=== PATIENT | male | born 1955 | race Caucasian/White ===

== ENCOUNTER 2020-01-03 18:56 | Emergency (ER) | payer MEDICAID ==
[~2020-01-03] VITALS: Ht 172.7 cm; Wt 76.2 kg
[2020-01-03 19:12] VITALS: BP 134/88
[2020-01-03] MEDS ORDERED: KETOROLAC 30 MG/ML VIAL IVP ONE (19:55)
[2020-01-03] MEDS ORDERED: NACL 0.9% 1,000 ML IV ONE (19:55)
[2020-01-03] MEDS ORDERED: PANTOPRAZOLE 40 MG INJ VIAL IVP ONE (19:55)
[2020-01-03 20:41] LABS: APPEARANCE,URINE CLEAR (CLEAR); BILIRUBIN,URINE 1+ (NEGATIVE); BLOOD, URINE NEGATIVE (NEGATIVE); COLOR,URINE YELLOW (YELLOW); LEUKOCYTE ESTERASE ,URINE NEGATIVE (NEGATIVE); NITRITE, URINE NEGATIVE (NEGATIVE); UGLUCOSE NEGATIVE (NEGATIVE)
[2020-01-03 21:07] LABS: MEAN CORPUSCULAR HGB CONC 34 g/dL (33-37)
[2020-01-03 21:21] LABS: ALBUMIN 3.2 g/dL (3.4-5.0); ANION GAP 13.4 (8-16); CARBON DIOXIDE 25.9 mmol/L (21-32); CREATININE 0.7 mg/dL (0.6-1.3); POTASSIUM 4.3 mmol/L (3.5-5.1); TOTAL BILIRUBIN 1.2 mg/dL (0.0-1.0)
[2020-01-03 21:24] LABS: BASOPHILS # (AUTO) 0.1 K/uL (0.00-0.22); BASOPHILS % (AUTO) 0.8 % (0.0-2.0); EOSINOPHILS # (AUTO) 0.1 K/uL (0-0.4); EOSINOPHILS % (AUTO) 0.6 % (0.0-4.0); HEMATOCRIT 40.2 % (36-52); HEMOGLOBIN 13.5 g/dL (12.0-18.0); LYMPHOCYTES # (AUTO) 2.2 K/uL (2.0-11.5); LYMPHOCYTES % (AUTO) 22.8 % (20.5-51.1); MEAN CORPUSCULAR HEMOGLOBIN 30 pg (27-31); MEAN CORPUSCULAR VOLUME 89.2 fL (80-94); MONOCYTES # (AUTO) 0.7 K/uL (0.8-1.0); MONOCYTES % (AUTO) 7.3 % (1.7-9.3); NEUTROPHILS # (AUTO) 6.5 K/uL (1.8-7.7); NEUTROPHILS % (AUTO) 68.5 % (42.2-75.2); PLATELET COUNT (AUTO) 225 K/uL (140-450); RED CELL DISTRIBUTION WIDTH 14.1 % (11.6-13.7); WHITE BLOOD COUNT (AUTO) 9.5 K/uL (4.8-10.8)
[2020-01-03 22:16] VITALS: BP 134/88
== END 2020-01-03 22:17 | disposition home or self-care (01) ==
LOC: MED 18:56
DX: K29.70 Gastritis, unspecified, without bleeding (principal); Z87.11 Personal history of peptic ulcer disease
CPT/HCPCS: 36415; 76705; 80053; 81003; 83690; 85025; 96361; 96374; 96375; 99284; C9113; J1885; J7030

== ENCOUNTER 2020-01-04 15:25 | Inpatient (IN) | payer MEDICAID, SELFPAY ==
[~2020-01-04] VITALS: Ht 182.9 cm; Wt 73.5 kg
--- NOTE | 2020-01-04 16:03 | NUR ---
PT TAKEN TO BED 6.
[2020-01-04 16:05] VITALS: BP 110/76
--- NOTE | 2020-01-04 16:05 | NUR ---
PATIENT PRESENTS TO ED WITH C/O RECTAL BLEED . PT STATES SX X 2 DAYS . SKIN IS PINK/WARM/DRY; AAOX4 WITH EVEN AND STEADY GAIT; LUNGS CLEAR BL; HR EVEN AND REGULAR; PT DENIES ANY FEVER, CP, SOB, OR COUGH AT THIS TIME; PATIENT STATES PAIN OF 0/10 AT THIS TIME; VSS; PATIENT POSITIONED FOR COMFORT; HOB ELEVATED; BEDRAILS UP X2; BED DOWN. ER MD MADE AWARE OF PT STATUS.
--- NOTE | 2020-01-04 16:05 | NUR ---
[facility] WITH C/O RECTAL BLEED X 2 DAYS. PT IS ALBANIAN SPEAKING INTERPRETOR AT BEDSIDE
--- NOTE | 2020-01-04 16:20 | NUR ---
RECTAL EXAM DONE, (+) FOR OB
[2020-01-04 16:32] LABS: BASOPHILS # (AUTO) 0.1 K/uL (0.00-0.22); BASOPHILS % (AUTO) 0.6 % (0.0-2.0); EOSINOPHILS # (AUTO) 0.1 K/uL (0-0.4); EOSINOPHILS % (AUTO) 0.8 % (0.0-4.0); HEMATOCRIT 30.5 % (36-52); HEMOGLOBIN 10.4 g/dL (12.0-18.0); LYMPHOCYTES # (AUTO) 2.8 K/uL (2.0-11.5); LYMPHOCYTES % (AUTO) 27.3 % (20.5-51.1); MEAN CORPUSCULAR HEMOGLOBIN 31 pg (27-31); MEAN CORPUSCULAR HGB CONC 34 g/dL (33-37); MEAN CORPUSCULAR VOLUME 89.8 fL (80-94); MONOCYTES # (AUTO) 0.7 K/uL (0.8-1.0); MONOCYTES % (AUTO) 7.2 % (1.7-9.3); NEUTROPHILS # (AUTO) 6.6 K/uL (1.8-7.7); NEUTROPHILS % (AUTO) 64.1 % (42.2-75.2); PLATELET COUNT (AUTO) 210 K/uL (140-450); RED CELL DISTRIBUTION WIDTH 14.3 % (11.6-13.7); WHITE BLOOD COUNT (AUTO) 10.3 K/uL (4.8-10.8)
[2020-01-04 17:10] LABS: ALBUMIN 3.3 g/dL (3.4-5.0); ANION GAP 13.7 (8-16); CARBON DIOXIDE 26.1 mmol/L (21-32); POTASSIUM 3.8 mmol/L (3.5-5.1); PROTHROMBIN TIME 9.9 secs (10.8-13.4); TOTAL BILIRUBIN 0.6 mg/dL (0.0-1.0)
--- NOTE | 2020-01-04 18:31 | NUR ---
ANUJ SWAB DONE AND GIVEN TO IT TELECOM TECHNICIAN
[2020-01-04] MEDS ORDERED: guaiFENesin DM 200/20 MG-10 ML 10 ML UDC PO PRN (19:00)
[2020-01-04] MEDS ORDERED: ONDANSETRON 4 MG/2 ML VIAL IM/IVP PRN (19:00)
[2020-01-04] MEDS ORDERED: ACETAMINOPHEN 325 MG TAB PO PRN (19:00)
[2020-01-04] MEDS ORDERED: POTASSIUM CHLORIDE 40 MEQ, LIDOCAINE MPF 1% 25 MG in NACL 0.9% 250 ML IV PRN (19:00)
[2020-01-04] MEDS ORDERED: PANTOPRAZOLE 40 MG INJ VIAL IVP SCH (19:00)
[2020-01-04] MEDS ORDERED: DOCUSATE SODIUM 100 MG GELCAP PO PRN (19:00)
[2020-01-04] MEDS ORDERED: ZOLPIDEM 5 MG TAB PO PRN (19:00)
--- NOTE | 2020-01-04 19:10 | NUR ---
RECIVED REPORT FROM GERALD GREENE. TRANSFER OF CARE.
--- NOTE | 2020-01-04 19:15 | NUR ---
64 Y/O MALE BIB SELF FOR C/O RECTAL BLEEDING X 2 DAYS. HE IS A&O X 4, AMBULATORY WITH STEADY GAIT. HE IS CURRENTLY IN THE EXCAVATOR OPERATOR AT THIS TIME. IN NO ACUTE DISTRESS NOTED. BREATHING EVEN AND UNLABORED. DENIES ANY ALLERGIES AT THIS TIME. MEDHX OF DM TYPE 2, HTN, GOUT AND ARTHRITITS. BED LOCKED AND LOWEST POSITION. CONTINUES ON THE EXCAVATOR OPERATOR.
[2020-01-04 19:26] LABS: APPEARANCE,URINE CLOUDY (CLEAR); BILIRUBIN,URINE NEGATIVE (NEGATIVE); BLOOD, URINE 1+ (NEGATIVE); COLOR,URINE YELLOW (YELLOW); LEUKOCYTE ESTERASE ,URINE 2+ (NEGATIVE); NITRITE, URINE NEGATIVE (NEGATIVE); UGLUCOSE NEGATIVE (NEGATIVE)
[2020-01-04 19:47] LABS: BARBITURATE, URINE NEGATIVE ng/ml (NEG <=200); BENZODIAZEPINE, URINE NEGATIVE ng/mL (NEG <=200); CANNABINOID, URINE NEGATIVE ng/mL (NEG <=50); COCAINE, URINE NEGATIVE ng/mL (NEG <=300); OPIATE, URINE POSITIVE ng/mL (NEG <=2000); PHENCYCLIDINE SCREEN,URINE NEGATIVE ng/mL (NEG <=25)
[2020-01-04 19:51] LABS: CHOL/HDL RATIO 4.6 (1-4.5); FREE T4 (FREE THYROXINE) 1.12 ng/dL (0.76-1.46); MAGNESIUM 1.8 mg/dL (1.8-2.4); PHOSPHORUS 3.2 mg/dL (2.5-4.9); THYROID STIMULATING HORMONE 3.42 uIU/mL (0.34-3.74)
--- NOTE | 2020-01-04 20:15 | NUR ---
RECEIVED REPORT FROM LAB THAT PTS COVID RAPID ANTIGEN WAS (+).
[2020-01-04 20:31] LABS: WBC,URINE 60-80 /HPF (0-5)
--- NOTE | 2020-01-04 20:39 | NUR ---
GAVE REPORT TO MARLYS GREENE FOR CONTINUITY OF CARE.
[2020-01-04 20:50] VITALS: BP 119/73
--- NOTE | 2020-01-04 20:50 | NUR ---
ADMITTED A 64M FROM ER. CAME BY WHEELCHAIR. AWAKE,ALERT AND ORIENTED X4. TURKMEN SPEAKING. WITH O2 SAT ON RA 99%. INITIATE DROPLET PRECAUTION FOR PT TESTED FOR JUAN +. MED SURG PT. PLAN OF CARE DISCUSSED AND VERBALIZED UNDERSTANDING. HAS HL ON THE LT FA G#20 CLEAR AND PATENT. BED ON LOW POSITION, SIDE RAILS UP X2. CALL LIGHT AND URINAL WITHIN REACH. ORIENTED TO HOSPITAL ROUTINES . WILL CONTINUE TO MONITOR.
[2020-01-04] MEDS: DEXT 5% /NACL 0.9% 1,000 ML IV SCH (21:38)
--- NOTE | 2020-01-04 22:00 | NUR ---
CHECKED ON PT. AWAKE. NO SOB AND PAIN NOTED.
--- NOTE | 2020-01-05 00:30 | NUR ---
MADE ROUNDS. PT IS SLEEPING. NO C/O ANY DISCOMFORT NOR DISTRESS NOTED. O2 SAT ON RA 98%.
--- NOTE | 2020-01-05 02:00 | NUR ---
MADE ROUNDS. PT IS ASLEEP. NO S/S OF ANY DISTRESS NOR PAIN NOTED.
--- NOTE | 2020-01-05 04:00 | NUR ---
PT AWAKE. NO C/O ANY DISCO,FORT NOTED. WILL CONTINUE TO MONITOR.
[2020-01-05 04:20] VITALS: BP 110/76
--- NOTE | 2020-01-05 05:18 | NUR ---
DR. VELÁSQUEZ MADE AWARE THAT URINE HAS 3+ BACTERIA. ORDERED GIVEN TO START ROCEPHIN 1GM IV DAILY. Addendum: 01/05/20 at 0519 by Nasra Swartz RN DR. WHITMORE INSTEAD OF DR. VELÁSQUEZ.
[2020-01-05] MEDS ORDERED: cefTRIAXone 1,000 MG VIAL ONE (05:29)
[2020-01-05 05:38] LABS: BASOPHILS # (AUTO) 0.1 K/uL (0.00-0.22); BASOPHILS % (AUTO) 0.9 % (0.0-2.0); EOSINOPHILS # (AUTO) 0.1 K/uL (0-0.4); EOSINOPHILS % (AUTO) 2.3 % (0.0-4.0); HEMOGLOBIN 8.2 g/dL (12.0-18.0); LYMPHOCYTES % (AUTO) 31.4 % (20.5-51.1); MEAN CORPUSCULAR HEMOGLOBIN 31 pg (27-31); MEAN CORPUSCULAR HGB CONC 34 g/dL (33-37); MEAN CORPUSCULAR VOLUME 89.5 fL (80-94); MONOCYTES # (AUTO) 0.5 K/uL (0.8-1.0); MONOCYTES % (AUTO) 8.3 % (1.7-9.3); NEUTROPHILS # (AUTO) 3.7 K/uL (1.8-7.7); NEUTROPHILS % (AUTO) 57.1 % (42.2-75.2); PLATELET COUNT (AUTO) 169 K/uL (140-450); RED BLOOD CELL COUNT(AUTO) 2.69 MIL/uL (4.20-6.10); RED CELL DISTRIBUTION WIDTH 13.8 % (11.6-13.7); WHITE BLOOD COUNT (AUTO) 6.5 K/uL (4.8-10.8)
--- NOTE | 2020-01-05 06:06 | NUR ---
ROCEPHIN IVPB STARTED . WILL MONITOR FOR ANY REACTION.
[2020-01-05 06:23] LABS: ANION GAP 8.9 (8-16); CARBON DIOXIDE 29.2 mmol/L (21-32); CREATININE 0.6 mg/dL (0.6-1.3); POTASSIUM 4.1 mmol/L (3.5-5.1)
--- NOTE | 2020-01-05 07:35 | NUR ---
ENDORSED PT IN STABLE CONDITION TO AM NURSE.
--- NOTE | 2020-01-05 07:40 | NUR ---
RECEIVED PT FROM PRESSROOM WORKER NURSE, IV NOTED TO LFA 20 G @ 60 ML/HR NS, ON ROOM AIR, CONTINENT, SAFETY AND FALL PRECAUTIONS IN PLACE, WILL CONTINUE TO MONITOR
--- NOTE | 2020-01-05 08:28 | NUR ---
PATIENT HAS BEEN SCREENED AND CATEGORIZED MODERATE NUTRITION RISK. PATIENT WILL BE SEEN WITHIN 3-5 DAYS OF ADMISSION. 01/07/20 01/09/[address]
[2020-01-05] MEDS ORDERED: SODIUM FERRIC GLUCONATE 125 MG in NACL 0.9% 100 ML IV SCH (09:00)
[2020-01-05] MEDS ORDERED: PANTOPRAZOLE 40 MG TABEC PO SCH (09:00)
[2020-01-05] MEDS: PANTOPRAZOLE 40 MG INJ VIAL IVP SCH ×3 (10:17→17:53)
--- NOTE | 2020-01-05 10:17 | NUR ---
MORNING MEDICATIONS ADMINISTERED, PT TOLERATED MEDICATIONS WELL, WILL CONTINUE TO MONITOR
[2020-01-05] MEDS: DEXT 5% /NACL 0.9% 1,000 ML IV SCH (11:40)
[2020-01-05] MEDS ORDERED: fentaNYL citrate 0.05 MG/ML VIAL ONE (11:41)
[2020-01-05] MEDS ORDERED: MIDAZOLAM 5 MG/5 ML VIAL ONE (11:41)
[2020-01-05] MEDS ORDERED: diphenhydrAMINE 50 MG/ML VIAL ONE (11:41)
[2020-01-05] MEDS ORDERED: MIDAZOLAM 2 MG/2 ML VIAL IVP ONE (12:55)
[2020-01-05] MEDS ORDERED: fentaNYL citrate 0.05 MG/ML VIAL IVP ONE (12:55)
[2020-01-05] MEDS ORDERED: diphenhydrAMINE 50 MG/ML VIAL IVP ONE (12:55)
--- NOTE | 2020-01-05 12:55 | NUR ---
EGD COMPLETED, VITALS CURRENTLY STABLE BP 103/67, PULSE 94, TEMP 97.8, RR 16, 100% NC 2.5 LPM, WILL CONTINUE TO MONITOR.
[2020-01-05] MEDS: SUCRALFATE 1 GM TAB PO SCH ×3 (13:00→21:00)
--- NOTE | 2020-01-05 13:16 | NUR ---
SOCIAL WORK NOTE: Patient's Orientation Unable To Assess Information Provided By ROBBY LEVIN - DAUGHTER Comments SW WAS UNABLE TO MEET PATIENT AT BEDSIDE DUE TO MEDICAL CONDITION. SW COMPLETED ASSESSMENT WITH PATIENT'S DAUGHTER, ROBBY. SW VERIFIED DEMOGRAPHICS WITH PATIENT'S DAUGHTER. Logistics Management Specialist, Realtionship and Phone Number ROBBY LEVIN DAUGHTER [phone] Healthcare Power of Child Protective Services Social Worker No Does Patient Have a POLST No Identifying Problems No Social Work Triggers Is A Social Work Consult Needed No Mandate Report Filed No Explanation Of Identifying Problems PATIENT IS A 64-YEAR-OLD MALE ADMITTED FOR GI BLEED AND FOREIGN BODY IN STOMACH. PATIENT HAS PMHX THYROID DISEASE, DIABEYES, AND HYPERTENSION. DAUGHTER REPORTED THAT PATIENT HAS NO HISTORY OF SUBSTANCE ABUSE OR MENTAL HEALTH. Admitted From Home Pre-Admission Level Of Functioning Status Independent/Ambulatory Prior Resources/Services Used In Last 12 Months No Prior Resources Used Prior DME No Prior DME Used Dialysis Comments N/A Living Situation Lives With Family House Patient Had Caregiver No Home Support No Caregiver Issues Financial Issues No Known Financial Issue Referral To The Financial Counselor Needed No Factors/Needs No D/C Needs Identified Explanation And Or Other Factors Affecting/Possible DC Needs PATIENT'S DAUGHTER STATED SHE WOULD ARRANGE TRANSPORTATION FOR PATIENT ONCE DISCHARGED. Pt/Rep Participated In Discharge Plan Yes Patient/Family Agress With Discharge Plan Yes Discharge Plan Comments TENTATIVE DISCHARGE PLAN IS FOR PATIENT TO RETURN HOME DC Plan Status Initiated
--- NOTE | 2020-01-05 14:15 | NUR ---
AFTERNOON MEDICATION ADMINISTERED, PT TOLERATED MEDICATION WELL,WILL CONTINUE TO MONITOR
--- NOTE | 2020-01-05 14:30 | NUR ---
DR. WHITMORE MADE A TELEPHONE ORDER TO PUT PT ON STRICT NPO. ORDER READ BACK AND VERIFIED AND WILL BE CARRIED OUT.
[2020-01-05 16:00] VITALS: BP 121/74
--- NOTE | 2020-01-05 17:56 | NUR ---
EVENING MEDICATION ADMINISTERED, PO MEDS HELD PER NPO ORDER, PT TOLERATED PROTONIX WELL, WILL CONTINUE TO MONITOR
--- NOTE | 2020-01-05 19:40 | NUR ---
ENDORSED PT TO AUTO ELECTRICAL TECHNICIAN NURSE FOR CONTINUITY OF CARE.
--- NOTE | 2020-01-05 19:41 | NUR ---
RECEIVED BEDSIDE REPORT FROM DAY SHIFT NURSE. PT IN BED RESTING WITH HOB ELEVATED. PT AAOX4, AMBULATORY, AND ABLE TO MAKE NEEDS KNOWN. RESPIRATIONS EVEN AND UNLABORED TO ROOM AIR. ABDOMEN IS SOFT AND NON-TENDER, BOWEL SOUNDS PRESENT ON ALL QUADRANTS. SKIN IS WARM, DRY, AND INTACT. NO EDEMA NOTED. IV ACCESS ON LEFT FA G 20 PATENT AND INTACT, IVF INFUSING WELL. PT DENIES ANY PAIN OR DISCOMFORT AT THIS TIME. NO REQUESTS MADE. PT KEPT ON NPO. SAFETY MEASURES IN PLACE. CALL LIGHT WITHIN REACH, WILL CONTINUE TO MONITOR.
[2020-01-05] MEDS: SODIUM FERRIC GLUCONATE 125 MG in NACL 0.9% 100 ML IV SCH (21:18)
--- NOTE | 2020-01-05 21:20 | NUR ---
VS STABLE. SCHEDULED MEDICATIONS GIVEN ORDERED. PO MEDS NOT GIVEN DUE PT ON NPO. PT DENIES ANY PAIN OR DISCOMFORT. KEPT COMFORTABLE. CALL LIGHT WITHIN REACH. WILL CONTINUE TO MONITOR.
--- NOTE | 2020-01-05 22:32 | NUR ---
PT IN BED WATCHING TV. DENIES ANY SOB OR DISCOMFORT. NO REQUESTS MADE. IVF INFUSING WELL. CALL LIGHT WITHIN REACH. WILL CONTINUE TO MONITOR.
[2020-01-06] VITALS: BP 102/67
--- NOTE | 2020-01-06 | NUR ---
TELEPHONE CONSENT FOR SURGERY OBTAINED FROM DAUGHTER, ROBBY. CALL WITNESSED BY LORENZA (RN).
--- NOTE | 2020-01-06 02:05 | NUR ---
PT ASLEEP. VISIBLE CHEST RISE AND FALL NOTED. NO S/SX OF DISTRESS NOTED. IVF INFUSING WELL. CALL LIGHT WITHIN REACH. WILL CONTINUE TO MONITOR.
--- NOTE | 2020-01-06 02:26 | NUR ---
ENDORSED TO OLY NARANJO) FOR CONTINUITY OF CARE.
--- NOTE | 2020-01-06 02:30 | NUR ---
RECEIVED REPORT OF PT IN STABLE CONDITION.SLEEPING NO S/S OF ANY DISTRESS NOTED NOW.WILL CONT.MONITORING.
[2020-01-06 04:00] VITALS: BP 92/60
[2020-01-06 05:59] LABS: BASOPHILS # (AUTO) 0.1 K/uL (0.00-0.22); EOSINOPHILS # (AUTO) 0.2 K/uL (0-0.4); EOSINOPHILS % (AUTO) 2.9 % (0.0-4.0); HEMATOCRIT 23.4 % (36-52); HEMOGLOBIN 8.1 g/dL (12.0-18.0); LYMPHOCYTES # (AUTO) 1.8 K/uL (2.0-11.5); LYMPHOCYTES % (AUTO) 30.6 % (20.5-51.1); MEAN CORPUSCULAR HEMOGLOBIN 31 pg (27-31); MEAN CORPUSCULAR HGB CONC 35 g/dL (33-37); MONOCYTES # (AUTO) 0.5 K/uL (0.8-1.0); NEUTROPHILS # (AUTO) 3.4 K/uL (1.8-7.7); NEUTROPHILS % (AUTO) 57.5 % (42.2-75.2); PLATELET COUNT (AUTO) 179 K/uL (140-450); RED CELL DISTRIBUTION WIDTH 13.8 % (11.6-13.7); WHITE BLOOD COUNT (AUTO) 5.8 K/uL (4.8-10.8)
[2020-01-06 06:29] LABS: ANION GAP 10.8 (8-16); CARBON DIOXIDE 27.8 mmol/L (21-32); CREATININE 0.6 mg/dL (0.6-1.3); POTASSIUM 3.6 mmol/L (3.5-5.1)
[2020-01-06 07:08] LABS: T4 (THYROXINE) 8.4 ug/dL (4.5-12.0)
[2020-01-06] MEDS: HYDROcodone/APAP 7.5/325 MG 1 TAB PO PRN (07:17)
--- NOTE | 2020-01-06 07:33 | NUR ---
ENDORSED TO AM RN IN STABLE CONDITION.HAD C/O PAIN PO MED GIVEN.AM RN WILL DO REASSESSMENT.IVF INFUSING .HE IS NPO FOR SURGERY AT 1200 NOON.
--- NOTE | 2020-01-06 07:34 | NUR ---
RECEIVED REPORT FROM PM RN. PT IS STABLE, IN NO DISTRESS. CONSENT COMPLETE BY MOTOR ASSEMBLER. SAFETY MEASURES IN PLACE. WILL CONTINUE WITH POC.
[2020-01-06] MEDS: SUCRALFATE 1 GM TAB PO SCH ×4 (09:00→20:06)
[2020-01-06] MEDS: PANTOPRAZOLE 40 MG INJ VIAL IVP SCH ×3 (09:24→17:00)
[2020-01-06] MEDS: SODIUM FERRIC GLUCONATE 125 MG in NACL 0.9% 100 ML IV SCH ×2 (09:33→20:06)
[2020-01-06] MEDS: DEXT 5% /NACL 0.9% 1,000 ML IV SCH ×2 (09:42→20:28)
--- NOTE | 2020-01-06 09:43 | NUR ---
PT IS AWAKE AND ALERT, ORIENTED X 4 IN NO DISTRESS. REPORTS PAIN MEDICATION EARLIER WAS EFFECTIVE PT REMAINS NPO DUE TO LAPOROSCOPY THAT WILL BE DONE TODAY AT NOON. CONSENT COMPLETE. RECEIVING IVF TO LEFT FOREARM WITH NO ISSUES. V/S: 98.1, 64, 18, 11/61, 99% RA PAIN 0/10. LUNG SOUNDS CLEAR REMAINS ON ROOM AIR WITH NO OXYGENATION IMPAIRMENT. ABD IS FLAT, SOFT AND NONTENDER WITH ACTIVE BS X 4. SAFETY MEASURES IN PLACE. WILL CONTINUE WITH POC.
--- NOTE | 2020-01-06 11:09 | NUR ---
RECEIVED PHONE CALL FROM DR. CHRIS REQUESTING ANOTHER CONSENT FOR EGD WITH ANESTHESIOLOGY WITH FB REMOVAL. CONSENT FOR LAP ALREADY OBTAINED. WILL CONTACT DAUGHTER. PT IS RESTING IN BED IN NO DISTRESS, RECEIVING IVF.
--- NOTE | 2020-01-06 11:16 | NUR ---
RECEIVED A CALL BACK FROM FAMILY WHO DOESN'T WANT TO DO EGD ANYMORE WANTS TO DO SURGERY, NO FURTHER CONSENT NEEDED.
--- NOTE | 2020-01-06 12:45 | NUR ---
V/S: 98.7, 67, 18, 117/72, 97% RA PAIN 0/10. PT RESTING IN BED, RECEIVING IVF REMAINS NPO. AWAITING FOR SURGERY. ALL NEEDS MET.
--- NOTE | 2020-01-06 14:45 | NUR ---
PT LAYING IN BED IN NO DISTRESS. CALLED OR FOR UPDATED, STAFF REPORTED SURGEON IS FINISHING UP WITH PRIOR CASE. PT WILL BE PICKED IN 30-45 MIN. RECEIVED CALL FROM DAUGHTER WANTING UPDATE. ATTEMPTED TO CALL BACK X 2 TO NOTIFY ON UPDATE HOWEVER NO ANSWER.
[2020-01-06] MEDS ORDERED: MEPERIDINE 25 MG/ML SYR ONE (15:45)
[2020-01-06] MEDS ORDERED: SUCCINYLCHOLINE CHLORIDE 200 MG/10 ML VIAL IVP ONE (15:45)
[2020-01-06] MEDS ORDERED: SUGAMMADEX SODIUM 200 MG/2 ML VIAL IV ONE (15:45)
[2020-01-06] MEDS ORDERED: DEXAMETHASONE 4 MG/ML VIAL ONE (15:45)
[2020-01-06] MEDS ORDERED: ONDANSETRON 4 MG/2 ML VIAL ONE (15:45)
[2020-01-06] MEDS ORDERED: KETOROLAC 30 MG/ML VIAL ONE (15:45)
[2020-01-06] MEDS ORDERED: hydrALAZINE 20 MG/ML VIAL ONE (15:45)
[2020-01-06] MEDS ORDERED: ROCURONIUM 50 MG/5 ML VIAL IV ONE (15:45)
[2020-01-06] MEDS ORDERED: PROPOFOL 200 MG/20 ML VIAL IV ONE (15:45)
[2020-01-06] MEDS ORDERED: SEVOFLURANE 250 ML BTL INH ONE (15:45)
--- NOTE | 2020-01-06 15:50 | NUR ---
PT LEAVING THE UNIT AT THIS TIME. PT IS AWAKE AND AWARE OF PROCEDURE V/S: 98.1, 64, 18, 100/61, 99% RA PAIN 0/10. DAUGHTER NOTIFIED PT GOING INTO SURGERY PER REQUEST.
[2020-01-06 16:00] VITALS: BP 100/61
[2020-01-06] MEDS ORDERED: ONDANSETRON 4 MG/2 ML VIAL IVP PRN (16:45)
[2020-01-06] MEDS ORDERED: LACTATED RINGERS 1,000 ML IV SCH (16:45)
[2020-01-06] MEDS ORDERED: diphenhydrAMINE 50 MG/ML VIAL IVP PRN (16:45)
[2020-01-06] MEDS ORDERED: MEPERIDINE 25 MG/ML SYR IVP PRN (16:45)
[2020-01-06] MEDS ORDERED: HYDROmorphone 1 MG/ML AMP IVP PRN (16:45)
[2020-01-06] MEDS ORDERED: HYDROcodone/APAP 5/325 MG 1 TAB TAB PO PRN (17:10)
--- NOTE | 2020-01-06 18:22 | NUR ---
PT RETURNED TO UNIT AT 1800 V/S: 97.4, 86, 18, 114/77, 96% RA PAIN REPORTING PAIN 9/10 TO INCISION SITE HOWEVER PT JUST GOT PAIN MEDICATION PRIOR TO RETURNING TO UNIT. WILL WAIT UNTIL FULL EFFECT KICKS IN . FAMILY NOTIFIED OF PTS. RETURN. PT HAS COVERED INCISION TO ABDOMINAL AREA. DRESSING CLEAN AND DRY.
--- NOTE | 2020-01-06 19:15 | NUR ---
PT ENDORSED TO PM RN WITH BEDSIDE REPORT. PT IS STABLE IN NO DISTRESS. RESTING WITH EYES CLOSED RESPIRATION EVEN AND UNLABORED. SAFETY MEASURES IN PLACE
--- NOTE | 2020-01-06 19:25 | NUR ---
RECEIVED BEDSIDE REPORT FROM DAY SHIFT NURSE FOR CONTINUITY OF CARE. PT IS SLEEPING, NO DISTRESS NOTED. CHEST RISE AND FALL IS SYMMETRICAL. ON RA WITH BREATHING UNLABORED. PT RETURNED FROM LAPAROTOMY PROCEDURE AT 1800 PER DAY SHIFT NURSE. DRESSING IS DRY AND INTACT. SKIN IS WARM AND DRY. IV IS IN THE LEFT FOREARM 20 GAUGE RUNNING D5 NS AT 60 ML PER HOUR PER ORDER. UNIVERSAL PRECAUTIONS IN PLACE AND DROPLET PRECAUTIONS IN PLACE. COVID RAPID POSITIVE. BED IS IN THE LOWEST POSITION AND CALL LIGHT WITHIN REACH. PT IS STABLE AT THIS TIME.
[2020-01-06] MEDS: HYDROmorphone 1 MG/ML AMP IVP PRN (20:06)
--- NOTE | 2020-01-06 20:06 | NUR ---
PT IS MOANING AND GRASPING SITE WITH A FACIAL GRIMACE. PT STATES HE IS IN PAIN AT THE SURGICAL INCISION SITE A SCALE OF 10/10. PT WAS GIVEN DILAUDID IVP FOR SEVERE PAIN. BP WAS 115/78 PRIOR TO ADMINISTRATION. WILL CONTINUE TO MONITOR PAIN.
--- NOTE | 2020-01-06 21:30 | NUR ---
PT STATES THAT HE NO LONGER HAS PAIN AT THE SURGICAL SITE. PT IS STABLE AND RESTING COMFORTABLY IN SEMI FOWLERS POSITION. NO DISTRESS NOTED. O2 SAT IS 95% ON RA. PT WAS PROVIDED PT TEACHING FOR THE INCENTIVE SPIROMETER. CELL PHONE AND ZINC PLATE GRAINER ARE AT THE BEDSIDE. DENTURES ARE ALSO AT THE BEDSIDE. WILL CONTINUE TO MONITOR PT.
--- NOTE | 2020-01-06 23:30 | NUR ---
PT IS SLEEPING IN SEMI FOWLERS POSITION. NO PAIN OR DISTRESS NOTED. IV FLUIDS ARE INFUSING ORDERED. BED IS IN THE LOWEST POSITION AND CALL LIGHT AND CELL PHONE WITHIN REACH.
--- NOTE | 2020-01-07 00:48 | NUR ---
PT IS AWAKE AND ALERT. A&OX4. STATES HE IS NOT IN PAIN AT THIS TIME. DRESSING IS SOILED WITH MINIMAL LIGHT PINK DRAINAGE. PT IS STABLE.
[2020-01-07] MEDS: HYDROmorphone 1 MG/ML AMP IVP PRN (03:15)
--- NOTE | 2020-01-07 03:15 | NUR ---
PT STATES HE HAS PAIN IN THE ABDOMEN AT A SCALE OF 9/10. THE PAIN IS ACHING AND COMING FROM THE INCISION SITE. BP WAS 120/74 AND DILAUDID WAS GIVEN FOR SEVERE PAIN. WILL CONTINUE TO MONITOR PT FOR PAIN. SURGICAL SITE DRESSING IS INTACT AND MINIMAL DRAINAGE OF BLOOD IS NOTED.
[2020-01-07 04:00] VITALS: BP 120/74
--- NOTE | 2020-01-07 05:12 | NUR ---
PT IS ASLEEP. NO DISTRESS NOTED. MINIMAL DRAINAGE ON THE DRESSING ON THE SURGICAL SITE AT THE ABDOMEN. SCD'S IN PLACE. PHONE IS AT BEDSIDE. BELONGINGS ARE WITHIN REACH. PT IS STABLE.
[2020-01-07] MEDS: DEXT 5% /NACL 0.9% 1,000 ML IV SCH (05:21)
[2020-01-07 06:05] LABS: BASOPHILS % (AUTO) 0.1 % (0.0-2.0); HEMATOCRIT 25.3 % (36-52); HEMOGLOBIN 8.6 g/dL (12.0-18.0); LYMPHOCYTES # (AUTO) 0.9 K/uL (2.0-11.5); LYMPHOCYTES % (AUTO) 9.8 % (20.5-51.1); MEAN CORPUSCULAR HEMOGLOBIN 31 pg (27-31); MEAN CORPUSCULAR HGB CONC 34 g/dL (33-37); MEAN CORPUSCULAR VOLUME 90.3 fL (80-94); MONOCYTES # (AUTO) 0.6 K/uL (0.8-1.0); MONOCYTES % (AUTO) 5.9 % (1.7-9.3); NEUTROPHILS # (AUTO) 8.1 K/uL (1.8-7.7); NEUTROPHILS % (AUTO) 84.2 % (42.2-75.2); PLATELET COUNT (AUTO) 229 K/uL (140-450); RED CELL DISTRIBUTION WIDTH 14.2 % (11.6-13.7); WHITE BLOOD COUNT (AUTO) 9.6 K/uL (4.8-10.8)
[2020-01-07 06:34] LABS: CARBON DIOXIDE 27.8 mmol/L (21-32); CREATININE 0.6 mg/dL (0.6-1.3); POTASSIUM 3.8 mmol/L (3.5-5.1)
--- NOTE | 2020-01-07 07:28 | NUR ---
RECEIVED REPORT FROM SEARCH MARKETING COORDINATOR RN FOR CONTINUITY OF CARE. PATIENT ASLEEP WITH NO ACUTE DISTRESS NOTED. RESPIRATORY EVEN AND UNLABORED. ABDOMINAL SURGICAL SITE DRESSING INTACT. SKIN WARM AND DRY, IV SITE LEFT FOREARM INTACT. INFUSING D5 NS@ 60ML/HR. SAFETY MEASURES IN PLACE, CALL LIGHT WITHIN REACH. WILL CONTINUE TO MONITOR.
--- NOTE | 2020-01-07 07:30 | NUR ---
ENDORSED PT TO DAY SHIFT NURSE FOR CONTINUITY OF CARE. PT IS STABLE AND ASLEEP AT THIS TIME. NO RESPIRATORY DISTRESS NOTED. PLAN OF CARE DISCUSSED.
[2020-01-07 08:00] VITALS: BP 135/79
[2020-01-07] MEDS: SUCRALFATE 1 GM TAB PO SCH ×4 (09:57→22:26)
[2020-01-07] MEDS: PANTOPRAZOLE 40 MG INJ VIAL IVP SCH ×3 (09:57→17:36)
[2020-01-07] MEDS: SODIUM FERRIC GLUCONATE 125 MG in NACL 0.9% 100 ML IV SCH ×2 (09:57→22:26)
--- NOTE | 2020-01-07 09:57 | NUR ---
SCHEDULED MORNING MEDICATION GIVEN, EDUCATION PROVIDED, PATIENT TOLERATED WELL. PATIENT COMPLAINT OF ABD PAIN 6/10. WILL GIVEN PAIN MED.
[2020-01-07] MEDS: HYDROcodone/APAP 7.5/325 MG 1 TAB PO PRN (10:06)
--- NOTE | 2020-01-07 10:06 | NUR ---
NORCO GIVEN FOR ABD PAIN LEVEL 6/10. EDUCATION PROVIDED, PATIENT TOLERATED WELL. ENCOURAGED PATIENT TO USE INCENTIVE SPIROMETER POST SURGERY. PATIENT VERBALIZED UNDERSTAND. WILL CONTINUE TO MONITOR.
--- NOTE | 2020-01-07 11:15 | NUR ---
CHECKED PATIENT, NOT IN ACUTE DISTRESS, SAFETY MEASURES IN PLACE, CALL LIGHT WITHIN REACH. WILL CONTINUE TO MONITOR.
--- NOTE | 2020-01-07 13:48 | NUR ---
SCHEDULED MEDICATION GIVEN, EDUCATION PROVIDED, PATIENT TOLERATED WELL. PATIENT STATED PAIN AT ABDOMEN 3/10. TOLERABLE WITHOUT MEDICATION. SAFETY MEASURES IN PLACE, CALL LIGHT WITHIN REACH. WILL CONTINUE TO MONITOR.
--- NOTE | 2020-01-07 15:12 | NUR ---
PATIENT SITTING AT SIDE OF THE BED, ENCOURAGED PATIENT TO USE THE INCENTIVE SPIROMETER. PATIENT VERBALIZED UNDERSTANDING AND ABLE TO USE BY HIMSELF. WILL CONTINUE TO MONITOR.
[2020-01-07 16:00] VITALS: BP 125/87
--- NOTE | 2020-01-07 17:36 | NUR ---
SCHEDULED MEDICATION PROTONIX AND CARAFATE GIVEN, EDUCATION PROVIDED, PATIENT TOLERATED WELL. PATIENT STATED THAT PAIN LEVEL AT ABD IS 2/10. NO PAIN MEDICATION NEEDED. RESPIRATORY EVEN AND UNLABORED. SAFETY MEASURES IN PLACE, WILL CONTINUE TO MONITOR.
--- NOTE | 2020-01-07 19:30 | NUR ---
ENDORSED PATIENT TO AREA OPERATIONS MANAGER RN FOR CONTINUITY OF CARE. PATIENT IN STABLE CONDITION.
--- NOTE | 2020-01-07 19:49 | NUR ---
SPOKE WITH DAUGHTER RADHA PT DAUGHTER WITH PT CONSENT, UPDATED ON PT CONDITION.
--- NOTE | 2020-01-07 20:00 | NUR ---
PT SITTING UP IN BED NO S/S OF PAIN OR DISTRESS NOTED. V/S FOLLOWS: T 98.0 P 91 R 17 B/P 126/81 02 95% ON ROOM AIR.PT HAS LEFT F/A IV SITE 20 GUAGE INTACT AND ASYMPTOMATIC RUNNING NORMAL SALINE AT 60MLS/HR. ALL UNIVERSAL AND DROPLET PRECAUTIONS IN PLACE.
--- NOTE | 2020-01-07 21:35 | NUR ---
PT IN BED RESPIRATIONS EVEN AND UNLABORED ON ROOM AIR. HE A L/FA 20 GUAGE INTACT AND ASYMPTOMATIC RUNNING NORMAL SALINE AT 60MLS/HR. V/S FOLLOWS: T 98.0 P 91 R 17 B/P 126/81 02 95% ON ROOM AIR. PT RECEIVED ORDERED AND SCHEDULED MEDICATIONS. EDUCATION REGARDING MEDICATIONS AND IT S PURPOSES PROVIDED AT BEDSIDE, REINFORCEMENT NEEDED. ALL DROPLET AND UNIVERSAL PRECAUTIONS IN PLACE.
[2020-01-08] VITALS: BP 127/86
--- NOTE | 2020-01-08 | NUR ---
ROUNDS MADE. PT IN BED WATCHING TV. DENIES PAIN AT THIS TIME. PT NOT IN DISTRESS. PT KEPT COMFORTABLE. SAFETY MEASURES IN PLACE. CALL LIGHT WITHIN REACH. WILL CONTINUE TO MONITOR. Addendum: 01/09/20 at 0006 by Td Vanegas RN WRONG TIME
--- NOTE | 2020-01-08 | NUR ---
PT RESTING BUT AROUSABLE TO LIGHT TOUCH, NO C/O VOICED. V/S FOLLOWS: T 98.6 P 84 R 17 B/P 127/86 02 96% ON ROOM AIR. ALL DROPLET AND UNIVERSAL PRECAUTIONS IN PLACE.
--- NOTE | 2020-01-08 03:15 | NUR ---
PT IN BED ASLEEP NO S/S OF PAIN OR DISTRESS NOTED. PT RESPIRATIONS ARE EVEN AND UNLABORED. IV INTACT AND RUNNING D5 N/S AT 60MLS/HR.
--- NOTE | 2020-01-08 06:00 | NUR ---
PT GIVEN A NEW DRESSING FOR ABDOMEN. SURGICAL WOUND HELD TOGETHER BY GLUE. AREA INTACT AND ASYMPTOMATIC. NEW IV STARTED ON RIGHT HAND 22 GUAGE. (OLD IV SITE LEAKING.) PT GIVEN ORDERED ROCEPHIN AND NEW BAG OF IV FLUIDS ORDERED. ALL DROPLET AND UNIVERSAL FALLS PRECAUTIONS IN PLACE, PT DENIES ANY PAIN.
[2020-01-08] MEDS: DEXT 5% /NACL 0.9% 1,000 ML IV SCH (06:20)
[2020-01-08 08:00] VITALS: BP 139/96
[2020-01-08 08:03] LABS: BASOPHILS % (AUTO) 0.3 % (0.0-2.0); EOSINOPHILS # (AUTO) 0.1 K/uL (0-0.4); EOSINOPHILS % (AUTO) 0.5 % (0.0-4.0); HEMATOCRIT 25.2 % (36-52); HEMOGLOBIN 8.5 g/dL (12.0-18.0); LYMPHOCYTES # (AUTO) 1.2 K/uL (2.0-11.5); LYMPHOCYTES % (AUTO) 9.4 % (20.5-51.1); MEAN CORPUSCULAR HEMOGLOBIN 30 pg (27-31); MEAN CORPUSCULAR HGB CONC 34 g/dL (33-37); MONOCYTES % (AUTO) 8.1 % (1.7-9.3); NEUTROPHILS # (AUTO) 10.2 K/uL (1.8-7.7); NEUTROPHILS % (AUTO) 81.7 % (42.2-75.2); PLATELET COUNT (AUTO) 244 K/uL (140-450); RED CELL DISTRIBUTION WIDTH 14.3 % (11.6-13.7); WHITE BLOOD COUNT (AUTO) 12.5 K/uL (4.8-10.8)
--- NOTE | 2020-01-08 08:06 | NUR ---
RECEIVED REPORT FROM ENGINEERING FACULTY RN. PATIENT AWAKE IN BED. HOB ELEVATED. NO C/O PAIN, NO SOB, RESPIRATION ARE EVEN AND UNLABORED. ON ROOM AIR. IV SITE LFA 20G INFUSING D5 NS @ 60ML/HR AND RH 22G ON SL. SKIN NOT INTACT. WITH ABD SURGICAL INCISION S/P LAPAROTOMY. SAFETY MEASURES IN PLACE. ISO PRECAUTION OBSERVED. CALL LIGHT WITHIN REACH. WILL CONTINUE TO MONITOR.
[2020-01-08] MEDS: SUCRALFATE 1 GM TAB PO SCH ×4 (09:00→20:43)
[2020-01-08] MEDS: PANTOPRAZOLE 40 MG INJ VIAL IVP SCH ×3 (09:00→17:25)
[2020-01-08] MEDS: SODIUM FERRIC GLUCONATE 125 MG in NACL 0.9% 100 ML IV SCH ×2 (09:00→20:43)
--- NOTE | 2020-01-08 09:30 | NUR ---
DUE MORNING MEDS GIVEN
--- NOTE | 2020-01-08 11:20 | NUR ---
PT IN BED. NO APPARENT DISTRESS, NO C/O PAIN, NO SOB
--- NOTE | 2020-01-08 13:54 | NUR ---
VS STABLE. SCHEDULED MEDICATIONS GIVEN ORDERED.
[2020-01-08 16:00] VITALS: BP 131/89
--- NOTE | 2020-01-08 16:40 | NUR ---
PT SITTING IN BED, NO S/S OF DISTRESS, NO C/O PAIN O2SAT 93% ON ROOM AIR. NO C/O DIFFICULTY BREATHING
[2020-01-08] MEDS: HYDROmorphone 1 MG/ML AMP IVP PRN (18:46)
--- NOTE | 2020-01-08 18:47 | NUR ---
PT IN BED. WITH C/O ABD PAIN WHEN EATING/DRINKING. DILAUDID GIVEN ORDERED
--- NOTE | 2020-01-08 19:25 | NUR ---
RECEIVED REPORT FROM DAY SHIFT NURSE. PT IN BED WITH HOB SLIGHTLY ELEVATED. PT AAOX4, AMBULATORY, ABLE TO MAKE NEEDS KNOWN. RESPIRATIONS EVEN AND UNLABORED TO ROOM AIR. PT NOT IN DISTRESS. KNOWN CASE OF COVID, DROPLET PRECAUTIONS OBSERVED. ABDOMEN IS SOFT AND NON-TENDER. PT WITH SURGICAL INCISION ON ABDOMEN, NO S/SX OF BLEEDING AND INFECTION NOTED. SKIN IS WARM AND DRY, NO EDEMA NOTED. IV ACCESS ON RIGHT HAND G22 PATENT AND INTACT, IVF INFUSING WELL. PT DENIES ANY PAIN OR DISCOMFORT AT THIS TIME. NO REQUESTS MADE. SAFETY MEASURES IN PLACE. CALL LIGHT WITHIN REACH. WILL CONTINUE TO MONITOR.
[2020-01-08] MEDS: HYDROcodone/APAP 7.5/325 MG 1 TAB PO PRN (20:55)
--- NOTE | 2020-01-08 20:55 | NUR ---
VS STABLE. SCHEDULED MEDS GIVEN ORDERED. PT COMPLAINING OF ABDOMINAL PAIN. PRN NORCO GIVEN. SAFETY MEASURES IN PLACE. CALL LIGHT WITHIN REACH. WILL CONTINUE TO MONITOR.
--- NOTE | 2020-01-08 21:55 | NUR ---
ROUNDS MADE. PT IN BED WATCHING TV. DENIES PAIN AT THIS TIME. PT NOT IN DISTRESS. PT KEPT COMFORTABLE. SAFETY MEASURES IN PLACE. CALL LIGHT WITHIN REACH. WILL CONTINUE TO MONITOR.
--- NOTE | 2020-01-09 00:04 | NUR ---
PT IN BED RESTING. PT NOT IN DISTRESS. NEW IVF HUNG. PT KEPT COMFORTABLE. CALL LIGHT WITHIN REACH. WILL CONTINUE TO MONITOR.
[2020-01-09] MEDS: DEXT 5% /NACL 0.9% 1,000 ML IV SCH (00:19)
--- NOTE | 2020-01-09 01:59 | NUR ---
PT ASLEEP. VISIBLE CHEST RISE AND FALL NOTED. PT NOT IN DISTRESS. O2 SAT 92a%. PT KEPT COMFORTABLE. CALL LIGHT WITHIN REACH. WILL CONTINUE TO MONITOR.
[2020-01-09 04:00] VITALS: BP 136/86
--- NOTE | 2020-01-09 04:03 | NUR ---
VITAL SIGNS STABLE. PT IN BED RESTING. DENIES ANY PAIN OR DISCOMFORT AT THIS TIME. NO REQUESTS MADE. PT NOT IN DISTRESS. KEPT COMFORTABLE. SAFETY MEASURES IN PLACE. CALL LIGHT WITHIN REACH. WILL CONTINUE TO MONITOR.
[2020-01-09] MEDS ORDERED: AMPICILLIN 1,000 MG VIAL ONE (05:15)
[2020-01-09] MEDS: AMPICILLIN 1,000 MG in NACL 0.9% 50 ML IV SCH ×2 (05:28→12:05)
--- NOTE | 2020-01-09 07:18 | NUR ---
ENDORSED TO DAY SHIFT NURSE FOR CONTINUITY OF CARE.
--- NOTE | 2020-01-09 07:20 | NUR ---
RECEIVED REPORT FROM NIGHT NURSE PATIENT IS SLEEPING ROOM AIR, AMBULATORY ON SOFT DIET, COVID POSITIVE, S/P LAPAROTOMY, SKIN NON INTACT, IV SITES INTACT AND PATENT ON RIGHT HAND. SAFETY MEASURES IN PLACE AND CALL LIGHT WITHIN REACH. WILL CONTINUE TO MONITOR.
[2020-01-09 08:00] VITALS: BP 143/85
[2020-01-09] MEDS: PANTOPRAZOLE 40 MG INJ VIAL IVP SCH ×2 (08:49→13:37)
[2020-01-09] MEDS: SUCRALFATE 1 GM TAB PO SCH ×2 (08:49→13:36)
--- NOTE | 2020-01-09 08:57 | NUR ---
MEDICATION DUE GIVEN CHECK VITAL SIGNS PRIOR TO MEDICATION BP 143/85 UT 92. NO DISTRESS NOTED AND DENIES PAIN. SAFETY MEASURES IN PLACE. WILL CONTINUE TO MONITOR.
[2020-01-09] MEDS ORDERED: LEVO500T98 PO (11:46)
--- NOTE | 2020-01-09 12:00 | NUR ---
MADE ROUNDS AT THIS TIME PATIENT IS STABLE AND RESTING NO DISTRESS NOTED.
--- NOTE | 2020-01-09 14:37 | NUR ---
DIONNE BRAUNNER: SCHEDULED PATIENT A FOLLOW UP APPOINTMENT WITH DR. NETTE KAPLAN ON Thursday AT 10:00 AM Addendum: 01/09/20 at 1445 by Savanna Wilder CM DIONNE EDUARDO: PLACED APPOINTMENT REMINDER IN PATIENTS CHART. JORGE HARDY Addendum: 01/09/20 at 1622 by Savanna Wilder CM DIONNE EDUARDO: SET UP HOME HEALTH FOR WOUND CARE FOR PATIENT WITH [facility]. SPOKE TO NEHA [phone] THEY WILL BE REACHING OUT TO PATIENT TOMORROW. SPOKE TO PATIENTS DAUGHTER TO NOTIFY.
--- NOTE | 2020-01-09 15:45 | NUR ---
DISCHARGED INSTRUCTIONS GIVEN TO PATIENT DAUGHTER TUAN [phone] AND INSTRUCTED TO CONTINUE MEDICATION AT HOME AND TO FOLLOW UP WITH PCP AND DR KAPLAN, GAVE APPOINTMENT SCHEDULE TO THE PATIENT. REMOVED IV AND COMPLETE NO BLEEDING, CHANGED PATIENT OWN CLOTHES AND PT TOOK ALL HIS BELONGINGS.ANSWERED ALL PATIENT QUESTION AND VERBALIZES UNDERSTANDING, [facility] PT IS DISCHARGED HOME ACCOMPANIED BY HIS FAMILY. PT IS STABLE.
== END 2020-01-09 15:45 | disposition home or self-care (01) | DRG 222 ==
LOC: MED 15:25 → MMU 19:12
PROVIDERS: ADMIT Family Medicine; ATTEND Family Medicine
PROC: 0DJ08ZZ Inspection of Upper Intestinal Tract, Via Natural or Artificial Opening Endoscopic (ICD-10-PCS; principal; 2020-01-05 11:45)
PROC: 0DC60ZZ Extirpation of Matter from Stomach, Open Approach (ICD-10-PCS; 2020-01-06 14:00)
DX: T18.2XXA Foreign body in stomach, initial encounter (principal); U07.1 COVID-19; F10.10 Alcohol abuse, uncomplicated; E44.1 Mild protein-calorie malnutrition; K29.71 Gastritis, unspecified, with bleeding; F17.200 Nicotine dependence, unspecified, uncomplicated; N39.0 Urinary tract infection, site not specified; D50.0 Iron deficiency anemia secondary to blood loss (chronic); Z87.11 Personal history of peptic ulcer disease; E03.9 Hypothyroidism, unspecified; E11.9 Type 2 diabetes mellitus without complications; E78.2 Mixed hyperlipidemia; I10 Essential (primary) hypertension; K27.9 Peptic ulcer, site unspecified, unspecified as acute or chronic, without hemorrhage or perforation; K44.9 Diaphragmatic hernia without obstruction or gangrene; M10.9 Gout, unspecified; M19.90 Unspecified osteoarthritis, unspecified site; Y92.89 Other specified places as the place of occurrence of the external cause; R10.9 Unspecified abdominal pain; Z68.22 Body mass index [BMI] 22.0-22.9, adult; B95.1 Streptococcus, group B, as the cause of diseases classified elsewhere
CPT/HCPCS: 36415; 71045; 80048; 80053; 80305; 81001; 82150; 83036; 83690; 83735; 83880; 84100; 84436; 84439; 84443; 84479; 84484; 85025; 85610; 85730; 86886; 86900; 86901; 87081; 87086; 93005; 99291; C9113; J0290; J0330; J0360; J0696; J1100; J1170; J1200; J1885; J2001; J2175; J2250; J2405; J2704; J2916; J3010; J3480; J3490; J7030; J7042; J7060